=== PATIENT | female | born 1985 | race Two or more races ===

== ENCOUNTER → 2019-12-09 | Outpatient (CLI) | payer OTHER | END | disposition home or self-care (01) | LOC: PRENATAL 13:30 | DX: O26.842 Uterine size-date discrepancy, second trimester (principal); O99.89 Other specified diseases and conditions complicating pregnancy, childbirth and the puerperium ==

== ENCOUNTER → 2020-03-18 | Outpatient (CLI) | payer OTHER | END | disposition home or self-care (01) | LOC: PRENATAL 14:00 | PROVIDERS: ATTEND Obstetrics & Gynecology Maternal & Fetal Medicine | DX: O26.843 Uterine size-date discrepancy, third trimester (principal); O99.89 Other specified diseases and conditions complicating pregnancy, childbirth and the puerperium; Z36.89 Encounter for other specified antenatal screening; Z3A.36 36 weeks gestation of pregnancy ==

== ENCOUNTER → 2021-11-24 08:30 | Outpatient (CLI) | payer OTHER | END | disposition home or self-care (01) | LOC: SONOGRAMA 08:30 | PROVIDERS: ATTEND Obstetrics & Gynecology | DX: N92.5 Other specified irregular menstruation (principal) ==

== ENCOUNTER 2021-11-28 15:41 | Emergency (ER) | payer OTHER ==
[~2021-11-28] VITALS: Ht 175.3 cm; Wt 59.0 kg
== END 2021-11-28 18:40 | disposition home or self-care (01) ==
LOC: ER 15:41
DX: O46.92 Antepartum hemorrhage, unspecified, second trimester (principal); Z3A.22 22 weeks gestation of pregnancy

== ENCOUNTER 2022-01-10 08:31 | Outpatient (CLI) | payer OTHER | END 2022-01-10 09:32 | disposition home or self-care (01) | LOC: PRENATAL 08:31 | PROVIDERS: ATTEND Obstetrics & Gynecology Maternal & Fetal Medicine | DX: O36.80X0 Pregnancy with inconclusive fetal viability, not applicable or unspecified (principal); O09.529 Supervision of elderly multigravida, unspecified trimester; Z3A.13 13 weeks gestation of pregnancy; O34.40 Maternal care for other abnormalities of cervix, unspecified trimester ==

== ENCOUNTER 2022-03-14 09:29 | Outpatient (CLI) | payer OTHER | END 2022-03-14 11:25 | disposition home or self-care (01) | LOC: PRENATAL 09:29 | PROVIDERS: ATTEND Obstetrics & Gynecology Maternal & Fetal Medicine | DX: O35.0XX0 Maternal care for (suspected) central nervous system malformation in fetus, not applicable or unspecified (principal); O35.3XX0 Maternal care for (suspected) damage to fetus from viral disease in mother, not applicable or unspecified; O09.529 Supervision of elderly multigravida, unspecified trimester; O34.40 Maternal care for other abnormalities of cervix, unspecified trimester; Z3A.21 21 weeks gestation of pregnancy ==

== ENCOUNTER 2024-07-27 11:05 | Outpatient (CLI) | payer OTHER | END 2024-07-27 11:18 | disposition home or self-care (01) | LOC: RAD 11:05 | PROVIDERS: ATTEND Orthopaedic Surgery | DX: M25.432 Effusion, left wrist (principal) ==

== ENCOUNTER 2024-10-26 08:48 | Outpatient (CLI) | payer OTHER | END 2024-10-26 09:05 | disposition home or self-care (01) | LOC: MAMO-SONO 08:48 | PROVIDERS: ATTEND Obstetrics & Gynecology | DX: N64.4 Mastodynia (principal) ==